=== PATIENT | male | born 1945 | race African-American/Black ===

== ENCOUNTER 2018-02-14 10:31 | Inpatient (IN) | payer OTHER ==
[~2018-02-14] VITALS: Ht 180.3 cm; Wt 110.0 kg
[~2018-02-14 10:31] MED LIST: AMLODIPINE BESY10 MG PO; BENAZEPRIL-HCT1 EAC5 PO; GLIMEPIRIDE1 MG PO; GLIPIZIDE; GLYBURIDE5 MG PO; IBUPROFEN800 MG PO; LYRICA150 MG PO; METFORMIN; METFORMIN HCL1000 MG PO; NAPROSYN500 MG PO; NOHOMEMEDS; OMEPRAZOLE20 MG PO; ONE DAILY FOR1 EAC2 PO; PERCOCET 10/1 TABLET PO; ULTRAM50 MG PO
[2018-02-14 10:56] LABS: HEMATOCRIT 35.5 % (38.0-50.0); HEMOGLOBIN 12.4 G/DL (12.5-16.6); MCH 29.8 PG (29.0-34.0); MCHC 34.9 G/DL (30.0-36.0); MCV 85.3 FL (86-99); PLATELET COUNT 283 K/uL (156-360); RBC DIS.WIDTH-CV 13.1 % (11.8-14.6); RBC DIS.WIDTH-SD 40.5 % (39-53); RED BLOOD COUNT 4.16 M/uL (4.00-5.50); WHITE BLOOD COUNT 17.7 K/uL (4.1-10.2)
[2018-02-14 10:58] LABS: CARBON DIOXIDE (BICARBONATE) 25.6 MEQ/L (20-31)
[2018-02-14 11:08] LABS: CHLORIDE 92 mEq/L (99-109); POTASSIUM 3.7 mEq/L (3.7-5.4); SODIUM 131 mEq/L (136-147)
[2018-02-14 11:10] LABS: GLUCOSE 249 mg/dL (70-99)
[2018-02-14 11:14] LABS: CREATININE 3.2 mg/dL (0.6-1.3); GFR ESTIMATE (CALCULATED) 25 mL/min/ (58.99-99999)
[2018-02-14 11:15] LABS: UREA NITROGEN (BUN) 27 mg/dL (9-23)
[2018-02-14 11:17] LABS: TROP-I INTERPRETATION NEGATIVE; TROPONIN-I 0.01 ng/mL (0.0-0.30)
[2018-02-14 11:28] LABS: ANISOCYTOSIS 1+; BASOPHIL (%) 0.2 % (0-1); EOSINOPHIL (%) 0.1 % (0-5); LYMPHOCYTE (%) 5.7 % (15-42); MACROCYTES 1+; MONOCYTE (%) 12.3 % (3-12); MONOCYTE COUNT 2.2 K/uL (0-0.8); NEUTROPHIL (%) 80.7 % (45-76); NEUTROPHIL COUNT 14.3 K/uL (1.8-6.4)
[2018-02-14] MEDS ORDERED: VIAGRA100 MG PO (12:27)
[2018-02-14 12:45] LABS: APPEARANCE CLOUDY ((CLEAR)); BILIRUBIN NEGATIVE; BLOOD MODERATE; COLOR AMBER ((YELLOW)); GLUCOSE (STRIP) NEGATIVE; KETONES NEGATIVE; LEUKOCYTES LARGE; NITRITE NEGATIVE; PROTEIN (STRIP) 100; SPECIFIC GRAVITY 1.021 (1.000-1.030)
[2018-02-14 12:52] LABS: BACTERIA 1+ /HPF; EPITHELIAL CELLS RARE /HPF; HYALINE CASTS 15-20 /LPF; MUCUS TRACE /LPF; UCUL ADDED? YES; WHITE BLOOD CELLS TNTC /HPF (0-5)
[2018-02-14 15:55] VITALS: BP 128/69
[2018-02-14 16:39] LABS: TROP-I INTERPRETATION NEGATIVE; TROPONIN-I 0.01 ng/mL (0.0-0.30)
[2018-02-14 16:43] LABS: BASE EXCESS -2.6 mEq/L (-3 to +3); BICARBONATE 21.7 mEq/L (22-26); CARBOXY HGB 1.9 % (0-5); COMMENTS - BLOOD GASES A+C+; DEVICE NC; METHEMOGLOBIN 1.7 % (0-1.5); O2 FLOW 3 L/MIN; PCO2 35 mm Hg (35-45); PO2 70 mm Hg (80-100); SITE LR; TOTAL RESP RATE 16 resp/min
[2018-02-14 17:34] LABS: CHLORIDE 91 MEQ/L (99-109); GFR ESTIMATE (CALCULATED) 30 mL/min/ (58.99-99999); GLUCOSE 236 mg/dL (70-99); POTASSIUM 4.2 MEQ/L (3.7-5.4); SODIUM 126 MEQ/L (136-147); UREA NITROGEN (BUN) 27 mg/dL (9-23)
[2018-02-14 17:41] LABS: CREATININE 2.7 MG/DL (0.6-1.3)
[2018-02-14 20:00] VITALS: BP 100/58
[2018-02-14 21:02] LABS: TROP-I INTERPRETATION NEGATIVE; TROPONIN-I 0.01 ng/mL (0.0-0.30)
[2018-02-14 23:59] VITALS: BP 111/59
[2018-02-15 02:12] LABS: TROP-I INTERPRETATION NEGATIVE; TROPONIN-I 0.02 ng/mL (0.0-0.30)
[2018-02-15 04:00] VITALS: BP 143/80
[2018-02-15 06:23] LABS: ALBUMIN 2.9 G/DL (3.2-4.8); CHLORIDE 94 MEQ/L (99-109); GFR ESTIMATE (CALCULATED) 23 mL/min/ (58.99-99999); GLUCOSE 262 mg/dL (70-99); PHOSPHORUS 2.8 mg/dL (2.5-4.9); SODIUM 127 MEQ/L (136-147); UREA NITROGEN (BUN) 38 mg/dL (9-23)
[2018-02-15 06:33] LABS: CREATININE 3.4 MG/DL (0.6-1.3)
[2018-02-15 07:20] LABS: BASOPHIL (%) 0.1 % (0-1); EOSINOPHIL (%) 0 % (0-5); HEMATOCRIT 29.5 % (38.0-50.0); LYMPHOCYTE (%) 13.5 % (15-42); LYMPHOCYTE COUNT 1.9 K/uL (1.0-2.8); MCH 28.8 PG (29.0-34.0); MCHC 33.6 G/DL (30.0-36.0); MCV 85.8 FL (86-99); MONOCYTE (%) 14.4 % (3-12); MONOCYTE COUNT 2.1 K/uL (0-0.8); NEUTROPHIL COUNT 10.1 K/uL (1.8-6.4); PLATELET COUNT 257 K/uL (156-360); RBC DIS.WIDTH-CV 13.4 % (11.8-14.6); RBC DIS.WIDTH-SD 42.3 % (39-53); RED BLOOD COUNT 3.44 M/uL (4.00-5.50); WHITE BLOOD COUNT 14.2 K/uL (4.1-10.2)
[2018-02-15 07:24] VITALS: BP 126/72
[2018-02-15 07:30] LABS: HEMOGLOBIN 9.9 G/DL (12.5-16.6)
[2018-02-15 09:34] LABS: HDL CHOLESTEROL 23 MG/DL (Desirable>=40); IRON 13 MCG/DL (35-150); LDL CHOLESTEROL 52 mg/dL (Desirable<100); NON-HDL CHOLESTEROL 74 mg/dL (Desirable<160); TOTAL CHOLESTEROL 97 mg/dL (Desirable<200); TRANSFERRIN (TIBC) 190.3 mg/dL (215-380); TRANSFERRIN SATUR. 7 % (20-55); TRIGLYCERIDES 111 MG/DL (Normal: <150)
[2018-02-15 09:44] LABS: RETIC HGB EQUIVALENT 28.3 (28-36); RETICULOCYTE COUNT 1.3 % (0.5-1.8)
[2018-02-15 10:36] LABS: FERRITIN 93 NG/ML (22-322)
[2018-02-15 11:04] LABS: FOLIC ACID (FOLATE) 18.7 NG/ML (5.0-22.0)
[2018-02-15 12:39] LABS: HEMOGLOBIN A1c (GLYCOHEMOGLOB) 12.9 % (Below 5.7)
[2018-02-15 13:00] VITALS: BP 122/77
[2018-02-15 18:10] VITALS: BP 119/75
[2018-02-15 20:00] VITALS: BP 134/76
[2018-02-15 23:55] VITALS: BP 140/72
[2018-02-16 04:00] VITALS: BP 118/69
[2018-02-16 06:09] LABS: BASOPHIL (%) 0.2 % (0-1); EOSINOPHIL (%) 0.1 % (0-5); HEMATOCRIT 29.9 % (38.0-50.0); HEMOGLOBIN 10.1 G/DL (12.5-16.6); IMMATURE GRANULOCYTE (%) 0.7 % (0.0-0.7); LYMPHOCYTE (%) 10.7 % (15-42); LYMPHOCYTE COUNT 1.3 K/uL (1.0-2.8); MCH 28.9 PG (29.0-34.0); MCHC 33.8 G/DL (30.0-36.0); MCV 85.4 FL (86-99); MONOCYTE (%) 18.8 % (3-12); MONOCYTE COUNT 2.3 K/uL (0-0.8); NEUTROPHIL (%) 69.5 % (45-76); NEUTROPHIL COUNT 8.4 K/uL (1.8-6.4); PLATELET COUNT 284 K/uL (156-360); RBC DIS.WIDTH-CV 13.5 % (11.8-14.6); RBC DIS.WIDTH-SD 42.5 % (39-53); WHITE BLOOD COUNT 12.1 K/uL (4.1-10.2)
[2018-02-16 06:35] LABS: ALBUMIN 3.1 G/DL (3.2-4.8); CHLORIDE 97 MEQ/L (99-109); GLUCOSE 200 mg/dL (70-99); PHOSPHORUS 2.3 mg/dL (2.5-4.9); POTASSIUM 3.7 MEQ/L (3.7-5.4); SODIUM 132 MEQ/L (136-147); UREA NITROGEN (BUN) 40 mg/dL (9-23)
[2018-02-16 06:37] LABS: CREATININE 1.9 MG/DL (0.6-1.3); GFR ESTIMATE (CALCULATED) 45 mL/min/ (58.99-99999)
[2018-02-16 07:14] VITALS: BP 121/75
[2018-02-16 08:42] LABS: INTACT PARATHYROID HORMONE 105 pg/mL (10-69)
[2018-02-16 11:17] VITALS: BP 134/87
[2018-02-16 16:42] VITALS: BP 135/82
[2018-02-16 20:02] VITALS: BP 113/63
[2018-02-16 23:55] VITALS: BP 141/81
[2018-02-17 04:00] VITALS: BP 133/79
[2018-02-17 05:25] LABS: HEMATOCRIT 30.6 % (38.0-50.0); HEMOGLOBIN 10.5 G/DL (12.5-16.6); MCH 29.2 PG (29.0-34.0); MCHC 34.3 G/DL (30.0-36.0); PLATELET COUNT 291 K/uL (156-360); RBC DIS.WIDTH-CV 13.2 % (11.8-14.6); RBC DIS.WIDTH-SD 41.4 % (39-53); WHITE BLOOD COUNT 10.2 K/uL (4.1-10.2)
[2018-02-17 06:13] LABS: ALBUMIN 3.2 G/DL (3.2-4.8); CHLORIDE 98 MEQ/L (99-109); GFR ESTIMATE (CALCULATED) > 59 mL/min/ (58.99-99999); PHOSPHORUS 2.4 mg/dL (2.5-4.9); POTASSIUM 3.7 MEQ/L (3.7-5.4); SODIUM 135 MEQ/L (136-147); UREA NITROGEN (BUN) 26 mg/dL (9-23)
[2018-02-17 06:17] LABS: CREATININE 1.1 MG/DL (0.6-1.3); GLUCOSE 114 mg/dL (70-99)
[2018-02-17 08:13] VITALS: BP 112/82
[2018-02-17 08:25] VITALS: BP 134/72
[2018-02-17 12:05] VITALS: BP 139/88
[2018-02-17 15:05] VITALS: BP 151/79
[2018-02-17 19:49] VITALS: BP 135/88
[2018-02-18 00:15] VITALS: BP 159/89
[2018-02-18 04:45] VITALS: BP 142/86
[2018-02-18 04:57] LABS: HEMATOCRIT 31.4 % (38.0-50.0); HEMOGLOBIN 10.9 G/DL (12.5-16.6); MCH 29.2 PG (29.0-34.0); MCHC 34.7 G/DL (30.0-36.0); MCV 84.2 FL (86-99); PLATELET COUNT 331 K/uL (156-360); RBC DIS.WIDTH-CV 13.2 % (11.8-14.6); RBC DIS.WIDTH-SD 40.6 % (39-53); RED BLOOD COUNT 3.73 M/uL (4.00-5.50)
[2018-02-18 05:01] LABS: ALBUMIN 3.1 g/dL (3.2-4.8); CHLORIDE 96 mEq/L (99-109)
[2018-02-18 05:02] LABS: POTASSIUM 3.9 mEq/L (3.7-5.4); SODIUM 131 mEq/L (136-147)
[2018-02-18 05:07] LABS: CREATININE 0.9 mg/dL (0.6-1.3); GFR ESTIMATE (CALCULATED) > 59 mL/min/ (58.99-99999); PHOSPHORUS 2.3 mg/dL (2.5-4.9)
[2018-02-18 05:08] LABS: UREA NITROGEN (BUN) 18 mg/dL (9-23)
[2018-02-18 05:16] LABS: GLUCOSE 198 mg/dL (70-99)
[2018-02-18 05:22] LABS: CHLORIDE 98 mEq/L (99-109); POTASSIUM 3.9 mEq/L (3.7-5.4); SODIUM 134 mEq/L (136-147)
[2018-02-18 05:24] LABS: GLUCOSE 197 mg/dL (70-99)
[2018-02-18 05:28] LABS: CREATININE 0.9 mg/dL (0.6-1.3); GFR ESTIMATE (CALCULATED) > 59 mL/min/ (58.99-99999)
[2018-02-18 05:29] LABS: UREA NITROGEN (BUN) 18 mg/dL (9-23)
[2018-02-18 08:14] VITALS: BP 159/96
[2018-02-18] MEDS ORDERED: CIPRO500 MG PO (10:32)
[2018-02-18 11:55] VITALS: BP 141/90
== END 2018-02-18 15:12 | disposition home health service (06) | DRG 871 ==
LOC: EME 10:31 → 4EAST 12:32 → EDOF 12:32 → ENRESERV 12:35 → 4EAST 15:24 → CANRESERV 02-16 08:00 → ENRESERV 02-16 08:00 → CANRESERV 02-16 10:39 → ENRESERV 02-16 10:39 → 4EAST 02-18 15:12
PROVIDERS: Emergency Medicine; Hospitalist; Internal Medicine Nephrology; Physician Assistant
DX: A41.51 Sepsis due to Escherichia coli [E. coli] (principal); N39.0 Urinary tract infection, site not specified; J96.01 Acute respiratory failure with hypoxia; J98.11 Atelectasis; N17.9 Acute kidney failure, unspecified; C90.00 Multiple myeloma not having achieved remission; E11.65 Type 2 diabetes mellitus with hyperglycemia; E87.1 Hypo-osmolality and hyponatremia; D50.9 Iron deficiency anemia, unspecified; N18.3 Chronic kidney disease, stage 3 (moderate); R65.20 Severe sepsis without septic shock; E11.22 Type 2 diabetes mellitus with diabetic chronic kidney disease; I12.9 Hypertensive chronic kidney disease with stage 1 through stage 4 chronic kidney disease, or unspecified chronic kidney disease; E78.5 Hyperlipidemia, unspecified; K21.9 Gastro-esophageal reflux disease without esophagitis; C85.90 Non-Hodgkin lymphoma, unspecified, unspecified site; R55 Syncope and collapse; G62.9 Polyneuropathy, unspecified; N52.9 Male erectile dysfunction, unspecified; Z91.19 Patient's noncompliance with other medical treatment and regimen; Z79.4 Long term (current) use of insulin
CPT/HCPCS: 36600; 70551; 71045; 74176; 76770; 78582; 80048; 80048 91; 80061; 80069; 81003; 82010; 82272; 82306; 82607; 82728; 82746; 82803; 82948; 83036; 83540; 83605; 83935; 83970; 84300; 84466; 84484; 85025; 85027; 85046; 85379; 87040; 87077; 87086; 87186; 87641; 87801; 93005; 94010; 94799; 99202; 99281; 99285; A9540; A9567; J0456; J0692; J0696; J1644; J1756; J1815; J3370; J7030; J7050; J7120